=== PATIENT | male | born 1960 | race Caucasian/White ===

== ENCOUNTER → 2018-07-18 | Outpatient (CLI) | payer OTHER | LOC: BMCIMAGING 17:58 | PROVIDERS: ATTEND Family Medicine | DX: R68.89 Other general symptoms and signs (principal) ==

== ENCOUNTER → 2018-09-03 | Outpatient (CLI) | payer OTHER ==
[~2018-09-03] MED LIST: IOPAMIDOL (ISOVUE 370) 100 ML BTL IV ONE
== END ==
LOC: FIMAGING 14:19
PROVIDERS: ATTEND Internal Medicine Cardiovascular Disease
DX: R06.02 Shortness of breath (principal); R07.89 Other chest pain
CPT/HCPCS: Q9967